=== PATIENT | male | born 1960 | race Caucasian/White ===

== ENCOUNTER → 2016-10-29 | Day surgery (SDC) | payer BC, OTHER ==
[~2016-10-29] MED LIST: LIDOCAINE W/ SODIUM BICARB 0.5 ML SYR ONE; Lactated Ringers 1,000 ML PRIMARY IV ONE; MIDAZOLAM 5 MG/1 ML ONE; fentaNYL Inj 100 MCG/2 ML VIAL ONE
[2016-10-29 08:18] VITALS: RESP 12; TEMP 97.9
--- NOTE | 2016-10-29 09:37 | GEN.OPNOTE ---
Colonoscopy Procedure Note Surgery Date: 10/29/16 Preoperative Diagnosis: Colon cancer screening and. Family history of colon cancer. Postoperative Diagnosis: Same. Polyps at 15 cm from the anal verge and 35 cm from the anal verge. Procedure: Complete colonoscopy with hot snare polypectomy 2. Surgeon: Dhaval Jimenez MD Anesthesia Provider: Pradip Gonzalez CRNA Anesthesia Type: MAC Indications: See preoperative diagnosis. Findings: Prep : [Excellent] Cecum : [Normal] Ascending : [Normal] Transverse : [Normal] Sigmoid : [Polyp at 35 cm. Hot snare polypectomy performed. Otherwise normal.] Rectum : [Polyp at 15 cm. I snare polypectomy performed. Otherwise normal.] Digital Rectal Exam : [No perianal pathology. Prostate of normal size and consistency.] A lubricated flexible colonoscope was inserted and passed to the blind end of the cecum. The blind end of the cecum, appendiceal orifice, and ileocecal valve were clearly seen. Air was aspirated as the scope was withdrawn. The entire scope was normal until I reached the sigmoid colon. There is a polyp at 35 cm which was removed with a hot snare. There is a polyp at 15 cm removed with a hot snare otherwise the sigmoid and rectum were unremarkable. The scope was withdrawn completing the procedure. Patient tolerated the procedure well without complication. He was taken to outpatient surgery in stable condition. Follow-up will be with my office on an as-needed basis. We will call the biopsy results and plan therapy and follow-up accordingly.
== END ==
LOC: SDSC 07:50
PROVIDERS: ATTEND Surgery
DX: Z12.11 Encounter for screening for malignant neoplasm of colon (principal); Z80.0 Family history of malignant neoplasm of digestive organs
CPT/HCPCS: 45385; J2704; J3010; J2250; J7120

== ENCOUNTER 2019-03-21 17:54 | Inpatient (IN) ==
[2019-03-21 18:18] LABS: BILIRUBIN,URINE NEGATIVE (NEG); CLARITY,URINE Slightly Cloudy (CLEAR); COLOR,URINE YELLOW (Y); GLUCOSE, URINE (UA) NEGATIVE (NEG); OCCULT BLOOD,URINE LARGE (NEG); PH,URINE 6.5 (5.0-8.5); PROTEIN,URINE 30 mg/dl (NEG); UROBILINOGEN,URINE 0.2 EU/dL (0.2)
[2019-03-21] MEDS ORDERED: LIDOCAINE HCL 2 % 10 ML JELLY URO-JECT TOPICAL ONE (18:18)
[2019-03-21 18:23] LABS: BACTERIA,URINE MANY; URINE SAMPLE TYPE VOIDED SPECIMEN; WBC,URINE >100
[2019-03-21] MEDS ORDERED: cefTRIAXone Inj 2 GM in Sodium Chloride 0.9% 100 ML IV ONE (18:28)
[2019-03-21] MEDS ORDERED: Acetaminophen 1000mg Inj 1,000 MG/100 ML VIAL IV ONE (19:32)
--- NOTE | 2019-03-21 19:57 | DI ---
CT ABDOMEN SCAN WITH IV CONTRAST, 03/21/2019 7:06 PM : Clinical History: Abdominal pain. Previous Exam: 11/29/2018. IV Contrast: 65 mL of Omnipaque 300. Oral Contrast: No oral contrast ordered. Rectal Contrast: No rectal contrast ordered. Lungs: No infiltrate or effusion. Liver: Normal size. Diffuse fatty infiltration, mild. Gallbladder: Grossly normal. Adrenal Glands: Normal. Spleen: Mild splenomegaly. Pancreas: Normal. Kidneys: Normal size, shape, position and contour. No hydronephrosis or hydroureter. No renal or uret eral calculi. Masses: None. Lymph Nodes: Normal. Ascites: No ascites. Free Air: None. Spine: Normal lower thoracic and lumbar spine. READING: Normal size liver with mild diffuse fatty infiltration. Mild splenomegaly. CT PELVIS SCAN WITH IV CONTRAST, 03/21/2019 7:06 PM: Clinical History: See above. Previous Exam: 11/29/2018. Contrast: Same bolus used for CT scans of the abdomen. Masses: No masses or enhancing lesions. Ascites: None. Free Air: None. Lymph Nodes: No adenopathy. Appendix: Small caliber measuring 2-3 mm in diameter, but normal. Small Bowel: Normal small bowel, terminal ileum, and ileocecal valve. Colon: Normal. Prostate: Moderate enlargement. Bladder: Decompressed with a Farmer catheter. Hernias: None. Bony Pelvis: Normal sacrum, pelvic bones, and hips. READING: Normal CT scan of the pelvis with IV contrast.
--- NOTE | 2019-03-21 21:04 | PDOC ---
HPI - History of Present Illness History of Present Illness: This very nice 58-year-old gentleman with past medical history of prostatitis and enlarged prostate with urinary retention in the past has seen Dr. Huffman in December was given Flomax. Comes in with lower abdominal pain he had a post void residual of 640 was inserted through which gave the patient relief wasn't felt to have a UTI and patient was admitted he is stable now and no pain resting Past Medical History Medical History: Enlarged prostate, prostatitis, urinary retention Tobacco Use: Never Smoker In the Past 12 Months, Have Used or Abuse Any of the Following Substance: None Medication / Allergies Home Medications: Home Medications Medication Instructions Recorded Confirmed olmesartan 40 mg tablet 20 mg PO QHS #45 tab 09/11/18 03/21/19 tamsulosin 0.4 mg capsule 0.4 mg PO QDAY #30 cap 11/11/18 03/21/19 celecoxib 200 mg capsule 200 mg PO QDAY #90 cap 02/13/19 03/21/19 tadalafil 20 mg tablet 20 mg PO QDAY #90 tab 02/13/19 03/21/19 Allergies/Adverse Reactions: Allergies Allergy/AdvReac Type Severity Reaction Status Date / Time fenofibrate nanocrystallized AdvReac Mild myalgias Verified 03/21/19 14:20 [From Tricor] fenofibrate,micronized AdvReac Mild myalgias Verified 03/21/19 14:20 [From Tricor] Review of Systems - Review of Systems All Systems: Reviewed & No Additional Complaints Except as Stated - Cardiovascular Cardiovascular: DENIES: Negative System Review, Chest Pain, Edema, Syncope, Palpitations, Orthopnea, Paroxysmal Nocturnal Dyspnea, Other, See HPI - Gastrointestinal Gastrointestinal / Abdominal: DENIES: Negative System Review, Nausea, Vomiting, Diarrhea, Constipation, Abdominal Pain, Bloody Stool, Poor Appetite, Heartburn, Regurgitation, Bloating, Lactose Intolerance, Melena, Bright Red Blood per Rectum, Other, See HPI Exam - Vitals Vital Signs: Vital Signs Temperature 97.1 F Temperature Source Temporal Artery Scan Pulse Rate [Pulse Oximeter] 104 Respiratory Rate 18 Blood Pressure [Left Arm] 148/88 Pulse Ox 98 Oxygen Delivery Method Room Air Height 6 ft 1 in Weight 240 lb - General General Appearance: No Acute Distress, Cooperative - Respiratory Respiratory Exam: POSITIVE: Clear to Auscultation - Bilaterally, Breathing Non Labored, Normal To Percussion, Normal to Percussion and Palpation - Cardiovascular Cardiovascular Exam: POSITIVE: RRR, No Murmur, No Clicks, No Gallops, No Rubs, PMI Non-Displaced - GI/Abdominal GI/Abdominal Exam: POSITIVE: Normal Bowel Sounds, Non Tender, Non Distended, Soft, No Masses, No Hepatomegaly, No Splenomegaly, No Organomegaly Assessment and Plan - Patient Problems (1) UTI (urinary tract infection) Current Visit: Yes Status: Acute Comment: Continue Rocephin 2 g daily Code(s): N39.0 - Urinary tract infection, site not specified (2) History of prostatitis Current Visit: No Status: Acute Onset Date: 10/14/16 Comment: At this point we are not sure if this is prostatitis is PSAs 10.2 most likely will need his Farmer left in and follow-up with urology once he is discharged to continue antibiotics for now and Farmer Code(s): Z87.438 - Personal history of other diseases of male genital organs
[2019-03-21] MEDS ORDERED: DOCUSATE 100 MG CAPSULE PO PRN (21:23)
[2019-03-21] MEDS ORDERED: LIDOCAINE W/ SODIUM BICARB 0.5 ML SYR SUBD PRN (21:23)
[2019-03-21] MEDS: Olmesartan Tab 40 MG TAB PO SCH (21:58)
[2019-03-21] MEDS: HYDROmorphone 2 MG/1 ML IVP PRN (21:58)
[2019-03-21] MEDS: Lactated Ringers 1,000 ML PRIMARY IV SCH (21:59)
[2019-03-21] MEDS: HEPARIN 5000 UNIT/1 ML SUBCUT SCH (22:55)
--- NOTE | 2019-03-22 00:49 | PDOC ---
General Adult HPI - General Chief Complaint: Genitourinary Complaint Stated Complaint: BLADDER PAIN/ CAN'T URINATE Date Seen by Provider: 03/21/19 Time Seen by Provider: 18:10 Source: POSITIVE: Patient, Spouse Exam Limitations: POSITIVE: No limitations Nurse's Notes Reviewed & Considered: Yes - History of Present Illness Initial Comment: The patient is a 58-year-old male. Patient states that for the past 2 years he has had some urinary urgency and difficulty urinating. He has been seen by a urologist from [place] and was given the option of having a prostatectomy, according to the patient. Patient states that for the last 2-3 days he has been having increasing difficulty urinating and some dysuria and urinary urgency. He has suprapubic pain. Postvoid residual by bladder scan done shortly after patient arrived to the emergency room was 594 mL. Have you received a tetanus shot in the past 10 years?: Unknown Body Location Affected: REPORTS: Abdomen (Suprapubic pain) Timing: REPORTS: Gradual, Getting Worse Duration: <1 week Severity: Moderate Quality: REPORTS: "Pain" (Suprapubic pain and pressure), Pressure Context: REPORTS: None Modifying Factors: improves with: Nothing Associated Symptoms: Urinary frequency and urgency and dysuria Similar Symptoms Previously: Yes Recent Care Received: REPORTS: Recently Seen, Treated by MD (Recently seen for anxiety and "rapid heart rate") Any Prior Injuries Related to Current Complaint?: No - Patient Home Medications Home Medications: Home Medications olmesartan 40 mg tablet 20 mg PO QHS #45 tab 09/11/18 tamsulosin 0.4 mg capsule 0.4 mg PO QDAY #30 cap 11/11/18 celecoxib 200 mg capsule 200 mg PO QDAY #90 cap 02/13/19 tadalafil 20 mg tablet 20 mg PO QDAY #90 tab 02/13/19 - Patient Allergies Allergies/Adverse Reactions: Allergies Allergy/AdvReac Type Severity Reaction Status Date / Time fenofibrate nanocrystallized AdvReac Mild myalgias Verified 03/21/19 14:20 [From Tricor] fenofibrate,micronized AdvReac Mild myalgias Verified 03/21/19 14:20 [From Tricor] Past Medical History - heen HEENT History: Denies History Cardiovascular History: Hypertension Additional Cardiovasular History: pt currently wearing Holter monitor Respiratory History: Denies History Gastrointestinal History: Denies History Genitourinary History: Other (please comment) Additional Genitourinary History: CHRONIC PROSTATITIS Endocrine History: Denies History Musculoskeletal History: Denies History Neurological History: Denies History Blood Disorders: Denies History Psychiatric History: Anxiety Disorders History of Sexually Transmitted Diseases: No Cancer History: Denies History In Past Year Been Physically Harmed or Verbally Threatened: No History of MDRO: No History of Other Communicable Diseases: No Tobacco Use: Never Smoker Alcohol Use: Occasionally Type of alcohol normally used: Beer In the Past 12 Months, Have Used or Abuse Any Substance: None Previous Surgical History: Yes Type / Date of Surgery: R OPEN KNEE SX/ TONSILLECTOMY Anesthesia Reactions: No Malignant Hyperthermia: No Significant Family History: Heart disease, Cancer, Hypertension, Vascular disease Past Medical History Reviewed: Reviewed - No Changes ROS - Limitations ROS Limitations: No Limitations Constitution: REPORTS: Fever (Possibly) Cardiovascular: REPORTS: Heart Palpitations Respiratory: REPORTS: Denies Resp Symptoms Neurological: REPORTS: Denies Neuro Symptoms Gastrointestinal: REPORTS: Abdominal Pain (Suprapubic) Endocrine: REPORTS: Denies Symptoms Musculoskeletal: REPORTS: Denies MS Symptoms Genitourinary: REPORTS: Dysuria, Difficulty Urinating Eyes: REPORTS: Denies Symptoms ENT: REPORTS: Denies Symptoms Skin: REPORTS: Denies Skin Symptoms Lympathic: REPORTS: Denies Lympathic Symptoms Immunologic: POSITIVE: Denies Symptoms Psychiatric: POSITIVE: Denies Psych Symptoms General Adult Exam - General Appearance General Appearance: POSITIVE: Alert, Cooperative, No Acute Distress, No Evidence of Trauma - Pupils Pupil Size: 3 mm: Bilateral - Neck Neck: POSITIVE: Normal Inspection, Thyroid Normal - Respiratory Respiratory: POSITIVE: No Respiratory Distress, Breath Sounds Normal, Chest Non- Tender - Cardiovascular Cardiovascular: POSITIVE: Regular Rate & Rhythm, No Murmur, No Gallop, PMI Normal Peripheral Pulses: Radial (R): 2+, Radial (L): 2+ - Abdomen Abdomen: Soft: (All Quadrants), Normal Bowel Sounds: (All Quadrants), No Spl enomegaly: (All Quadrants), No Hepatomegaly: (All Quadrants), No Guarding: (All Quadrants), No Rebound: (All Quadrants), No Palpable Pulse: (All Quadrants), No Palpabale Mass: (All Quadrants), No Rigidity: (All Quadrants), Tenderness Noted: (RLQ), (LLQ) (suprapubic tenderness), Distention: (RLQ), (LLQ) (bladder distention) Additional Abdominal Details: Abdominal examination shows bowel sounds to be active. Patient has some bladder distention and post void residual according to bladder scan is 594 mL. Bladder is palpably distended and he has some suprapubic tenderness on palpation. Patient is uncircumcised. No testicular pain. No perineal lesions. - Back Back: POSITIVE: Normal Inspection. NEGATIVE: CVA Tenderness - Skin Skin: POSITIVE: Normal Color, Warm, Dry, No Rash - Extremities Extremity: Non-Tender: (All Extremities), Normal ROM: (All Extremities), Normal Inspection: (All Extremities) - Neurological / Psychological Neurological: POSITIVE: Affect Apporpriate, Oriented X3, mixer machine feeder Normal As Tested, Motor Normal, Sensation Normal Images - Complete Complete: 1 - Bladder distended; suprapubic tenderness. Procedures - Additional Procedures Additional Procedures: Farmer Catheter (Farmer catheter placed without difficulty. About 600 mL of postvoid urine obtained which was cloudy. Patient tolerated procedure well.) General Adult Progress - Results Reviewed by me Xrays/CTs/US Reviewed by me: Yes Discussed with Radiologist: Yes Radiology Findings: CT scan abdomen and pelvis with IV contrast normal. Lab Results Reviewed by Me: Yes (White blood cell count 16,680, CMP normal, hemoglobin 15.5, hematocrit 46) Lab Results:: Laboratory Results 03/21/19 03/21/19 14:00 18:00 PSA Screen 12.5 H Ur Collection Type Voided specimen Urine Color Yellow Urine Clarity Slightly cloudy Urine pH 6.5 Ur Specific Harvey 1.010 Urine Protein 30 A Urine Glucose (UA) Negative Urine Ketones Negative Urine Occult Blood Large H Urine Nitrate Positive H Urine Bilirubin Negative Urine Urobilinogen 0.2 Ur Leukocyte Esterase Large Urine RBC 10-20 Urine WBC >100 H Ur Squamous Epith Cells None Ur Renal Epithelial Cell None Urine Crystals None Urine Bacteria Many H Urine Casts None Urine Mucus None Urine Trichomonas None Urine Yeast None Ur Culture Indicated? Culture set White blood cell count - Patient's Progress Pain Medication Addressed: POSITIVE: Yes (Marked relief with bladder decompression) School/Work Release Addressed: POSITIVE: Not Applicable Re-Examine Time: 20:25 Re-Examine Comment: Patient achieved good relief with decompression of his bladder. At 2014 his temperature was 100.1 degrees centigrade. Patient given 2 g of Rocephin IV in the emergency room. Screening PSA mildly elevated. Case discussed with Dr. Penny,, was admitted the patient for further evaluation and treatment. Status: POSITIVE: Improved, Re-Examined Antibiotics Given: Yes (Rocephin 2 g IV) - Consult Counseled: POSITIVE: Patient, Family (), RE: Lab Results, RE: Radiology Results, RE: DX, RE: Need for F/U Patient Care Time - Estimated PCT Patient Care Time (In Minutes): 50 Vital Signs - Recent Vital Signs Vital Signs: Vital Signs (Last 8 hours) Temp Pulse Resp BP Pulse Ox 03/21/19 18:19 97.1 F 104 H 18 148/88 98 - VS Reviewed Vital Signs Reviewed: Yes Discharge Clinical Impression: Urinary retention, Urinary tract infection Discharge Disposition: Admit to Inpatient Condition: Good Patient Problem(s) Reviewed: Yes Date Decision to Admit to Inpatient: 03/21/19 Time Decision to Admit to Inpatient: 20:25
[2019-03-22] MEDS ORDERED: LIDOCAINE HCL 2 % 10 ML JELLY URO-JECT TOPICAL PRN (02:32)
[2019-03-22] MEDS: ACETAMINOPHEN 325 MG TABLET PO PRN ×3 (02:48→18:18)
[2019-03-22 04:55] LABS: BASOPHILS # (AUTO) 0.02 10*3/UL; BASOPHILS % (AUTO) 0.1 % (0-1); EOSINOPHILS # (AUTO) 0.01 10*3/UL; EOSINOPHILS % (AUTO) 0.1 % (0-8); Hematocrit [HCT] 40.4 % (42.0-52.0); Hemoglobin [HGB] 13.7 g/dL (14.0-18.0); LYMPHOCYTES # (AUTO) 1.31 10*3/uL; MEAN CORPUSCULAR HEMOGLOBIN 30.8 PG (27-31); MEAN CORPUSCULAR HGB CONC 33.9 g/dL (33-37); MEAN CORPUSCULAR VOLUME 90.8 FL (80-90); MONOCYTES # (AUTO) 1.73 10*3/UL (0.3-0.8); MONOCYTES % (AUTO) 9.1 % (5-15); NEUTROPHILS # (AUTO) 15.92 10*3/UL; NEUTROPHILS % (AUTO) 83.5 % (50-80); RED BLOOD COUNT 4.45 10^6/uL (4.70-6.10)
[2019-03-22 05:09] LABS: PLATELET MORPHOLOGY COMMENT NORMAL MORPHOLOGY (NORM); RBC MORPHOLOGY COMMENT NORMAL MORPHOLOGY (NORM); WBC MORPHOLOGY COMMENT NORMAL MORPHOLOGY (NORM)
[2019-03-22 05:12] LABS: BLOOD UREA NITROGEN 23 mg/dL (7-22); BUN/CREATININE RATIO 25.55 (6-20); SERUM ALBUMIN 3.8 g/dL (3.5-4.8)
[2019-03-22] MEDS: HEPARIN 5000 UNIT/1 ML SUBCUT SCH ×3 (05:14→21:30)
[2019-03-22] MEDS: Lactated Ringers 1,000 ML PRIMARY IV SCH ×3 (05:42→22:40)
[2019-03-22] MEDS: TAMSULOSIN 0.4 MG CAPSULE PO SCH (09:20)
[2019-03-22] MEDS: cefTRIAXone Inj 2 GM in Sodium Chloride 0.9% 100 ML IV SCH (09:27)
--- NOTE | 2019-03-22 10:46 | PDOC(PROG) ---
Date of Service: 03/22/19 Time of Service: 10:45 Interval History: Subjective Patient came into the hospital as his heart was racing, apparently he was given some Ativan and was discharged, However her ended up coming back again because he could not urinate. He did mention that he's been having burning when he the last few days. His stream is weak for years according to him. He did see a urologist back in December and he did not put him on any medication. Objective : Data - Labs CBC and BMP: 03/22/19 04:33 03/22/19 04:33 Objective : Exam - General General Appearance: No Acute Distress, Cooperative - Head Head Exam: Normal Inspection - Eye Eye Exam: Normal Appearance - ENT ENT Exam: Normal Exam - Neck Neck Exam: Normal Inspection - Respiratory Respiratory Exam: Clear to Auscultation - Bilaterally - Cardiovascular Cardiovascular Exam: RRR - GI/Abdominal GI/Abdominal Exam: Normal Bowel Sounds, Non Tender, Non Distended, Soft, No Organomegaly - Rectal Rectal Exam: Deferred - External Exam: Deferred - Extremities Extremities Exam: Normal Inspection - Back Back Exam: Normal Inspection - Neurological Neurological Exam: Alert, Oriented x 3, CN II-XII Intact, No Facial Droop, Speech Intact / Clear, Moves All Extremities Equally - Psychiatric Psychiatric Exam: Normal Affect - Integumentary Integumentary Exam: Normal Color Assessment and Plan - Patient Problems (1) History of prostatitis Current Visit: No Status: Acute Onset Date: 10/14/16 Comment: He is infrequently been on Flomax, he was started on Flomax will continue with it. Code(s): Z87.438 - Personal history of other diseases of male genital organs (2) UTI (urinary tract infection) Current Visit: Yes Status: Acute Comment: He was started on Rocephin continue with it. The urine culture according to the lab is growing gram-negative organism. His white count is still up I think we'll keep him another day in the hospital. Code(s): N39.0 - Urinary tract infection, site not specified (3) Elevated PSA Current Visit: Yes Status: Acute Comment: May be secondary to infection but this need to be monitored as an outpatient and followed up with urology. Code(s): R97.20 - Elevated prostate specific antigen [PSA] (4) Essential hypertension Current Visit: No Status: Acute Onset Date: 02/17/12 Comment: Patient is on losartan was given last night. Continue. We'll watch his blood pressure. Code(s): I10 - Essential (primary) hypertension
[2019-03-22] MEDS: HYDROmorphone 2 MG/1 ML IVP PRN ×2 (14:25→21:29)
[2019-03-22] MEDS: ONDANSETRON 4 MG/2 ML VIAL IVP PRN (19:31)
[2019-03-22] MEDS: Olmesartan Tab 40 MG TAB PO SCH (21:30)
[2019-03-23] MEDS: HEPARIN 5000 UNIT/1 ML SUBCUT SCH ×2 (05:47→14:00)
[2019-03-23 07:18] LABS: BASOPHILS # (AUTO) 0.01 10*3/UL; BASOPHILS % (AUTO) 0.1 % (0-1); EOSINOPHILS # (AUTO) 0.05 10*3/UL; EOSINOPHILS % (AUTO) 0.5 % (0-8); Hematocrit [HCT] 40.9 % (42.0-52.0); Hemoglobin [HGB] 13.9 g/dL (14.0-18.0); MEAN CORPUSCULAR HEMOGLOBIN 30.9 PG (27-31); MEAN CORPUSCULAR VOLUME 90.9 FL (80-90); MEAN PLATELET VOLUME 9.6 FL (7.4-12.2); MONOCYTES # (AUTO) 0.98 10*3/UL (0.3-0.8); MONOCYTES % (AUTO) 9.7 % (5-15); NEUTROPHILS % (AUTO) 78.4 % (50-80)
[2019-03-23 07:19] LABS: PLATELET MORPHOLOGY COMMENT NORMAL MORPHOLOGY (NORM); RBC MORPHOLOGY COMMENT NORMAL MORPHOLOGY (NORM); WBC MORPHOLOGY COMMENT NORMAL MORPHOLOGY (NORM)
[2019-03-23] MEDS: Lactated Ringers 1,000 ML PRIMARY IV SCH ×2 (07:21→16:23)
[2019-03-23 07:46] LABS: BLOOD UREA NITROGEN 16 mg/dL (7-22)
[2019-03-23] MEDS: ACETAMINOPHEN 325 MG TABLET PO PRN ×2 (08:27→16:35)
[2019-03-23] MEDS: TAMSULOSIN 0.4 MG CAPSULE PO SCH (08:28)
[2019-03-23] MEDS: cefTRIAXone Inj 2 GM in Sodium Chloride 0.9% 100 ML IV SCH (08:28)
[2019-03-23] MEDS: ONDANSETRON 4 MG/2 ML VIAL IVP PRN ×2 (08:34→17:17)
--- NOTE | 2019-03-23 09:56 | PDOC(PROG) ---
Date of Service: 03/23/19 Time of Service: 10:00 Interval History: Subjective Patient said that he felt better this morning he did some walking around the nurses station felt okay but then later on he said he had some nausea but no vomiting. Seems to be improving after receiving medication. No pain no vomit ing. Objective : Data - Labs CBC and BMP: 03/23/19 07:14 03/23/19 07:14 Objective : Exam - General General Appearance: No Acute Distress, Cooperative - Head Head Exam: Normal Inspection - Eye Eye Exam: Normal Appearance - ENT ENT Exam: Normal Exam - Neck Neck Exam: Normal Inspection - Respiratory Respiratory Exam: Clear to Auscultation - Bilaterally - Cardiovascular Cardiovascular Exam: RRR - GI/Abdominal GI/Abdominal Exam: Normal Bowel Sounds, Non Tender, Non Distended, Soft, No Organomegaly - Rectal Rectal Exam: Deferred - External Exam: Deferred - Extremities Extremities Exam: Normal Inspection - Back Back Exam: Normal Inspection - Neurological Neurological Exam: Alert, Oriented x 3, CN II-XII Intact, No Facial Droop, Moves All Extremities Equally - Psychiatric Psychiatric Exam: Normal Affect Assessment and Plan - Patient Problems (1) History of prostatitis Current Visit: No Status: Acute Onset Date: 10/14/16 Comment: Continue Flomax will get him an appointment with a urologist as an addition he has an elevated PSA. Code(s): Z87.438 - Personal history of other diseases of male genital organs (2) UTI (urinary tract infection) Current Visit: Yes Status: Acute Comment: Continue antibiotics and Flomax, will have the culture results today. I think we'll keep him another day and aim to discharge him tomorrow. May try to take the catheter out tomorrow. Code(s): N39.0 - Urinary tract infection, site not specified (3) Elevated PSA Current Visit: Yes Status: Acute Comment: He needs follow-up with urology will try to get him an appointment. Code(s): R97.20 - Elevated prostate specific antigen [PSA] (4) Essential hypertension Current Visit: No Status: Acute Onset Date: 02/17/12 Comment: Same med Code(s): I10 - Essential (primary) hypertension
--- NOTE | 2019-03-23 12:52 | PTI REPORT ---
Thank you for the referral of Navarro Nicole. He was seen on 03/22/19 for an inpatient evaluation secondary to generalized weakness. SUBJECTIVE: The patient is a 58-year-old male. The patient was interviewed immediately following conferring with Dr. Massey. Dr. Massey states that the patient seems to be doing very well and is not sure why therapy was even ordered. According to the patient, the patient states he has been having trouble for several weeks with urination; however, has a Farmer in place and is doing better but states from laying in bed that he is getting stiff and sore. PAST MEDICAL HISTORY: Past medical history can be found in the patient's medical record. OBJECTIVE FINDINGS: Bed mobility: The patient was able to perform all bed mobility independently. Range of motion: Functional range of motion is globally well within functional limits. Ambulation: The patient was able to ambulate well over 300 feet without any loss of balance or any safety concerns without the use of any assistive device. Balance: The patient demonstrated appropriate balance both bilaterally and unilaterally without any safety concerns. ASSESSMENT: The patient does not qualify for skilled physical therapy at this time. Physical Therapy Goals: To be met by discharge from inpatient: Patient will be independent with all transfers and bed mobility. Patient will be able to ambulate community distances independently. TREATMENT PLAN: Patient will be seen by physical therapy for evaluation only at this time as the patient does not qualify for skilled physical therapy. The therapist discussed this with the nursing staff that the patient may get up and walk with either the nursing staff or his . INITIAL TREATMENT: Treatment today consisted of the initial evaluation followed by the patient ambulating only. The patient does not quality for skilled therapy at this time. JENNIFER
[2019-03-23] MEDS: CALCIUM CARBONATE 500 MG (TUMS) CHEWABLE TABLET PO PRN (14:00)
--- NOTE | 2019-03-23 15:11 | OTI REPORT ---
Thank you for the referral of Navarro Nicole. He was seen on 03/22/19 for an occupational therapy inpatient evaluation secondary to generalized weakness. SUBJECTIVE: The patient is a 58-year-old male who reports that he came into the hospital last night secondary to issues related to urinary retention, painful urination, and inability to urinate. The patient reports that he has had these symptoms for about two weeks. The patient does live here in [place] with his . He works at the [employer] and he is an active individual. The patient reports that a couple of weeks ago he hiked two to three miles with no difficulty. At prior level of function he was independent in all ADLs and all iADLs. PAST MEDICAL HISTORY: Past medical history can be found in the patient's medical record. OBJECTIVE FINDINGS: Range of motion/Strength: The patient demonstrates upper extremity range of motion that is within functional limits with strength of 5/5 bilaterally. Bed mobility: The patient demonstrated the ability to complete bed mobility tasks independently. Transfers: The patient demonstrated the ability to transfer from sit to stand independently. Ambulation: The patient demonstrated the ability to ambulate three laps around the nurse's station without the use of an assistive device. The patient did have assistance with managing Farmer and IV. The patient was educated in asking for assistance when getting up to ambulate due to being hooked up to a couple of different things at this time. ASSESSMENT: The patient has no occupational therapy concerns at this time as he is independent in all ADL tasks. His upper extremity strength and range of motion is within functional limits. He is moving well with no reports of pain or balance issues. The patient had no losses of balance. He was able to sit unsupported and stand unsupported without difficulty. TREATMENT PLAN: Patient will not be picked up by occupational therapy due to his independence level. He would not benefit from skilled therapy at this time. INITIAL TREATMENT: Treatment today consisted of the initial evaluation only. JENNIFER
[2019-03-23] MEDS ORDERED: Senna/Docusate Tab 1 TAB TAB PO PRN (18:14)
[2019-03-23] MEDS ORDERED: MAGNESIUM 400 MG/5 ML - 30 ML (MILK OF MAGNESIA) PO PRN (18:15)
[2019-03-23] MEDS ORDERED: HYDROcodone-APAP 5 MG -325 MG TABLET PO PRN (20:58)
[2019-03-23] MEDS ORDERED: Ondansetron ODT Tab 4 MG TAB PO PRN (20:58)
[2019-03-23] MEDS: Olmesartan Tab 40 MG TAB PO SCH (21:23)
[2019-03-24] MEDS: CALCIUM CARBONATE 500 MG (TUMS) CHEWABLE TABLET PO PRN (03:53)
[2019-03-24 05:10] LABS: BASOPHILS # (AUTO) 0.01 10*3/UL; BASOPHILS % (AUTO) 0.2 % (0-1); EOSINOPHILS # (AUTO) 0.08 10*3/UL; EOSINOPHILS % (AUTO) 1.4 % (0-8); Hematocrit [HCT] 39.1 % (42.0-52.0); Hemoglobin [HGB] 13.2 g/dL (14.0-18.0); LYMPHOCYTES # (AUTO) 1.26 10*3/uL; MEAN CORPUSCULAR HGB CONC 33.8 g/dL (33-37); MEAN CORPUSCULAR VOLUME 91.8 FL (80-90); MEAN PLATELET VOLUME 9.9 FL (7.4-12.2); MONOCYTES # (AUTO) 0.92 10*3/UL (0.3-0.8); MONOCYTES % (AUTO) 16.1 % (5-15); NEUTROPHILS # (AUTO) 3.39 10*3/UL; NEUTROPHILS % (AUTO) 59.3 % (50-80); RED BLOOD COUNT 4.26 10^6/uL (4.70-6.10)
[2019-03-24 06:13] LABS: PLATELET MORPHOLOGY COMMENT NORMAL MORPHOLOGY (NORM); RBC MORPHOLOGY COMMENT NORMAL MORPHOLOGY (NORM); WBC MORPHOLOGY COMMENT NORMAL MORPHOLOGY (NORM)
[2019-03-24] MEDS: TAMSULOSIN 0.4 MG CAPSULE PO SCH (09:13)
[2019-03-24] MEDS: cefTRIAXone Inj 2 GM in Sodium Chloride 0.9% 100 ML IV SCH (09:13)
[2019-03-24] MEDS: Lactated Ringers 1,000 ML PRIMARY IV SCH (10:17)
--- NOTE | 2019-03-24 12:00 | DCSUMMARY ---
Hospitalization Summary Admit Date: March 21 Discharge Date: 03/24/19 Hospital Course: Discharge diagnoses 1. UTI likely cystitis and prostatitis 2. Acute urinary retention secondary to the above 3. Elevated PSA 4. History of hypertension Hospital course This is a 58 years old male with medical history significant for history of previous prostatitis and hypertension who presented to the hospital with history of lower abdominal pain, dysuria and urinary retention. he had a catheter ins erted and UA was abnormal so he was given Rocephin and was admitted to the hospital. He was admitted by Dr. Penny please see his note. Patient was started also on Flomax. Patient white count was initially 16,600 went up to 19,000. I saw him the next day after admission we continued with the same plan. White count started to go down. On the day of discharge he was feeling better his white count down to 5700. We discontinued the catheter he was able to urinate after that so we thought he could be discharged home. His PSA was elevated I did tell him that he needs follow-up with urology and actually we booked him with a urologist. The growth from the urine showed Escherichia coli was treated with 4 days of IV antibiotics and discharged on additional 10 days of Levaquin. I did tell him that I'll leave it up to the urologist to decide about a longer course of treatment. Laboratory Results 03/24/19 04:20 WBC 5.72 RBC 4.26 L Hgb 13.2 L Hct 39.1 L MCV 91.8 H MCH 31.0 MCHC 33.8 RDW Std Deviation 42.5 RDW Coeff of Rosa 13.0 Plt Count 190 MPV 9.9 Immature Gran % (Auto) 1.0 Neut % (Auto) 59.3 Lymph % (Auto) 22.0 [place] % (Auto) 16.1 H Eos % (Auto) 1.4 Baso % (Auto) 0.2 Immature Gran # (Auto) 0.06 Neut # (Auto) 3.39 Lymph # (Auto) 1.26 [place] # (Auto) 0.92 H Eos # (Auto) 0.08 Baso # (Auto) 0.01 WBC Morphology Comment Normal morphology Plt Morphology Comment Normal morphology RBC Morph Comment Normal morphology Discharge instruction Diet regular Activity as tolerated Medications Current Medication(s) Medication Instructions Recorded Confirmed Type olmesartan 40 mg tablet 20 mg PO QHS #45 tab 09/11/18 03/21/19 Rx celecoxib 200 mg capsule 200 mg PO QDAY #90 cap 02/13/19 03/21/19 Rx tadalafil 20 mg tablet 20 mg PO QDAY #90 tab 02/13/19 03/21/19 Rx Levofloxacin [Levaquin] 500 mg PO DAILY #10 tab 03/24/19 Rx Tamsulosin HCl [Flomax] 0.4 mg PO QDAY #30 cap 03/24/19 Rx Follow-up with PCP in 1-2 weeks, follow-up with urologist as scheduled Condition at discharge was stable for discharge Exam - Vitals Vital Signs: Vital Signs Temperature 98.8 F Temperature Source Oral Pulse Rate [Pulse Oximeter] 90 Pulse Rate 96 Respiratory Rate 16 Blood Pressure [Right Arm] 128/90 Blood Pressure [Left Arm] 110/70 Blood Pressure 101/53 Pulse Ox 91 Oxygen Delivery Method Room Air Height 6 ft Weight 255 lb - General General Appearance: No Acute Distress - Head Head Exam: Normal Inspection - Eye Eye Exam: POSITIVE: Normal Appearance - ENT ENT Exam: POSITIVE: Normal Exam - Neck Neck Exam: Normal Inspection - Respiratory Respiratory Exam: POSITIVE: Clear to Auscultation - Bilaterally - Cardiovascular Cardiovascular Exam: POSITIVE: RRR - GI/Abdominal GI/Abdominal Exam: POSITIVE: Normal Bowel Sounds, Non Tender, Non Distended, Soft, No Organomegaly - Rectal Rectal Exam: POSITIVE: Deferred - External Exam: POSITIVE: Deferred - Extremities Extremities Exam: POSITIVE: Normal Inspection - Back Back Exam: POSITIVE: Normal Inspection - Neurological Neurological Exam: POSITIVE: Alert, Oriented x 3, CN II-XII Intact, No Facial Droop, Speech Intact / Clear, Moves All Extremities Equally - Psychiatric Psychiatric Exam: POSITIVE: Normal Affect - Integumentary Integumentary Exam: POSITIVE: Normal Color Patient Problems - Patient Problem List (1) History of prostatitis Current Visit: No Status: Acute Onset Date: 10/14/16 Code(s): Z87.438 - Personal history of other diseases of male genital organs Category: Medical (2) UTI (urinary tract infection) Current Visit: Yes Status: Acute Code(s): N39.0 - Urinary tract infection, site not specified Category: Medical (3) Elevated PSA Current Visit: Yes Status: Acute Code(s): R97.20 - Elevated prostate specific antigen [PSA] Category: Medical (4) Essential hypertension Current Visit: No Status: Acute Onset Date: 02/17/12 Code(s): I10 - Essential (primary) hypertension Category: Medical
[2019-03-24 12:33] VITALS: BP 120/83; RESP 18; TEMP 98.1; O2SAT 94
== END 2019-03-24 12:53 | disposition home or self-care (01) | DRG 696 ==
LOC: ER 17:54 → MED/SURG 21:06
PROVIDERS: ADMIT Internal Medicine; ATTEND Internal Medicine